=== PATIENT | female | born 1950 | race Caucasian/White ===

== ENCOUNTER → 2021-04-30 | Outpatient (CLI) | payer MEDICARE, OTHER | LOC: M.ULTRA 04-29 09:36 | PROVIDERS: ATTEND Nurse Practitioner Family | DX: K80.20 Calculus of gallbladder without cholecystitis without obstruction (principal); K76.0 Fatty (change of) liver, not elsewhere classified; D09.19 Carcinoma in situ of other urinary organs; R74.8 Abnormal levels of other serum enzymes ==

== ENCOUNTER → 2021-04-30 | Outpatient (CLI) | payer OTHER | LOC: M.CT 08:18 | PROVIDERS: ATTEND Nurse Practitioner Family | DX: Z13.6 Encounter for screening for cardiovascular disorders (principal); I25.10 Atherosclerotic heart disease of native coronary artery without angina pectoris ==

== ENCOUNTER → 2021-05-06 | Outpatient (CLI) | payer MEDICARE, OTHER | LOC: M.CT 07:03 | PROVIDERS: ATTEND Nurse Practitioner Family | DX: N28.89 Other specified disorders of kidney and ureter (principal); K76.0 Fatty (change of) liver, not elsewhere classified; K80.00 Calculus of gallbladder with acute cholecystitis without obstruction; K42.9 Umbilical hernia without obstruction or gangrene; K86.89 Other specified diseases of pancreas ==